=== PATIENT | female | born 2000 | race Hispanic/Latino ===

== ENCOUNTER 2021-06-21 08:14 | Outpatient (CLI) | payer OTHER | END 2021-06-21 08:15 | disposition home or self-care (01) | LOC: SCSMRI 08:14 | PROVIDERS: ATTEND Psychiatry & Neurology Neurology | DX: G93.5 Compression of brain (principal) | CPT/HCPCS: 70551; 72141 ==

== ENCOUNTER 2021-07-05 08:11 | Outpatient (CLI) | payer OTHER | END 2021-07-05 08:12 | disposition home or self-care (01) | LOC: SCSMRI 08:11 | PROVIDERS: ATTEND Psychiatry & Neurology Neurology | DX: G93.5 Compression of brain (principal) | CPT/HCPCS: 72146; 72148 ==